=== PATIENT | female | born 2000 | race Caucasian/White ===

== ENCOUNTER 2019-05-12 20:25 | Emergency (ER) | payer OTHER, BC ==
[~2019-05-12] VITALS: Ht 175.3 cm; Wt 80.9 kg
[2019-05-12] MEDS ORDERED: FAMOTIDINE 20 MG TABLET ONE (20:47)
[2019-05-12] MEDS ORDERED: DIPHENHYDRAMINE 25 MG CAPSULE ONE (20:47)
[2019-05-12 20:51] VITALS: BP 125/53
--- NOTE | 2019-05-12 20:53 | NUR ---
PT ATE [employer] AND HAVING AN ALLERGIC REACTION TO. PT REPORTS DID NOT KNOW WAS IN CRUST. PT GAVE HERSELF AN EPI SHOT. PT HAS NO RESP DISTRESS AND NO VISIBLE HIVES. PT HAS NO WHEEZING PRESENT.
[2019-05-12] MEDS ORDERED: DIPHENHYDRAMINE 25 MG CAPSULE PO ONE (21:00)
[2019-05-12] MEDS ORDERED: FAMOTIDINE 20 MG TABLET PO ONE (21:00)
--- NOTE | 2019-05-12 21:31 | NUR ---
NO COMPLICATIONS, PT TOLERATING WELL RA. PT REPORTS NO RESPIRATORY ISSUES.
--- NOTE | 2019-05-12 22:19 | NUR ---
Patient/Caregiver given discharge instructions and they have confirmed that they understand the instructions. Patient ambulatory with steady gait.
== END 2019-05-12 22:21 | disposition home or self-care (01) ==
LOC: ED 22:00
DX: L50.0 Allergic urticaria (principal); T78.1XXA Other adverse food reactions, not elsewhere classified, initial encounter; X58.XXXA Exposure to other specified factors, initial encounter
CPT/HCPCS: 99284; J7512; Q0163